=== PATIENT | female | born 1985 | race African-American/Black ===

== ENCOUNTER 2016-11-24 01:07 | Emergency (ER) | payer SELFPAY ==
[~2016-11-24] VITALS: Ht 165.1 cm; Wt 66.0 kg
[2016-11-24] MEDS ORDERED: HYDR-3992 PO (01:15)
[2016-11-24] MEDS ORDERED: HYDROXYZINE 25MG TABLET PO ONE (04:15)
[2016-11-24 05:00] VITALS: BP 121/69
== END 2016-11-24 05:03 | disposition home or self-care (01) ==
LOC: ER 01:08
DX: F41.9 Anxiety disorder, unspecified (principal)
CPT/HCPCS: 81025; 99283

== ENCOUNTER 2017-11-17 11:43 | Emergency (ER) | payer SELFPAY ==
[~2017-11-17] VITALS: Ht 165.1 cm; Wt 71.0 kg
[~2017-11-17 11:43] MED LIST: HYDR-3992 PO
[2017-11-17] MEDS ORDERED: NITROGLYCERIN 0.4MG TABLET SL SL ONE (12:15)
[2017-11-17] MEDS ORDERED: GLUCAGON,HUMAN RECOMBINANT 1MG/VIAL IV ONE (12:15)
[2017-11-17] MEDS ORDERED: SODIUM CHLORIDE 0.9% 1,000 ML IV ONE (12:15)
[2017-11-17] MEDS ORDERED: MAGNESIUM/ALUMINUM HYDROXIDE/SIMETHICONE 30ML UDC PO ONE (15:15)
[2017-11-17] MEDS ORDERED: VISCOUS LIDOCAINE 2% 15 ML UDC MM PRN (15:15)
[2017-11-17 18:22] VITALS: BP 115/77
== END 2017-11-17 18:22 | disposition home or self-care (01) ==
LOC: ER 12:23
DX: R09.89 Other specified symptoms and signs involving the circulatory and respiratory systems (principal); F41.9 Anxiety disorder, unspecified; Z97.5 Presence of (intrauterine) contraceptive device
CPT/HCPCS: 70360; 70490; 81025; 96361; 96374; 99284; J1610; J7030; Z7610